=== PATIENT | male | born 2000 | race Asian ===

== ENCOUNTER 2020-07-01 16:29 | Inpatient (IN) | payer OTHER ==
[~2020-07-01] VITALS: Ht 167.6 cm; Wt 43.0 kg
[2020-07-01] MEDS ORDERED: ACETAMINOPHEN 500 MG TABLET ONE (17:12)
[2020-07-01 17:52] LABS: MEAN CORPUSCULAR HEMOGLOBIN 27.9 pg (27.5-34.5); MEAN CORPUSCULAR HGB CONC 33.1 g/dL (33.2-36.2); MEAN PLATELET VOLUME 7.1 fL (7.4-10.4); PLATELET COUNT 315 x10^3/uL (130-400); RED BLOOD COUNT 4.38 x10^6/uL (4.38-5.82); RED CELL DISTRIBUTION WIDTH 12.3 % (9.4-14.8)
[2020-07-01 17:56] LABS: MD YES
[2020-07-01] MEDS ORDERED: SODIUM CHLORIDE 0.9% 1,000ML IVBOLUS ONE (18:00)
[2020-07-01] MEDS ORDERED: ACETAMINOPHEN 500 MG TABLET PO ONE (18:00)
[2020-07-01] MEDS ORDERED: SODIUM CHLORIDE FLUSH 10ML SYR IVF ONE (18:30)
[2020-07-01] MEDS ORDERED: CEFTRIAXONE PMX 1GM/50ML 50 ML IV ONE (19:00)
[2020-07-01 19:16] LABS: BANDS%(MANUAL) 20 % (0-7); LYMPH#(MANUAL) 0.13 x10^3/uL (1-6.1); LYMPHS% (MANUAL) 2 % (22-44); METAMYELOCYTES# (MANUAL) 0.39 x10^3/uL (0-0); METAMYELOCYTES% (MANUAL) 6 % (0-1); MONOS#(MANUAL) 0.59 x10^3/uL (0.3-2.7); MONOS% (MANUAL) 9 % (2-9); REACTIVE LYMPHS % (MANUAL) 3 % (0-0); SEGS% (MANUAL) 60 % (42-75)
--- NOTE | 2020-07-01 19:20 | NUR ---
PT RESTING IN BED WITH PT FAMILY AT HIS SIDE. PT IS IN BATHROOM NOW TRYING TO PROVIDE URINE SAMPLE.
[2020-07-01 19:22] LABS: <PLATELET ESTIMATE> ADEQUATE; <PLT MORPHOLOGY> NORMAL PLT MORPH; ANISOCYTOSIS 1+
[2020-07-01 19:24] LABS: POLYCHROMASIA 1+
[2020-07-01] MEDS ORDERED: CEFTRIAXONE PMX 1GM/50ML 50 ML ONE (19:34)
[2020-07-01 19:56] LABS: MICROSCOPIC NOT IND
[2020-07-01] MEDS: CEFTRIAXONE PMX 1GM/50ML 50 ML IV SCH (20:00)
[2020-07-01] MEDS ORDERED: BISACODYL 10 MG SUPP PR PRN (20:00)
[2020-07-01] MEDS: AZITHROMYCIN 500 MG in SODIUM CHLORIDE 0.9% 250 ML IV SCH (20:00)
[2020-07-01] MEDS ORDERED: POLYETHYLENE GLYCOL 17 GM PACKET PO PRN (20:00)
[2020-07-01 20:28] LABS: ALANINE AMINOTRANSFERASE 11 U/L (12-78); ANION GAP 6 mmol/L (5-15); CALCIUM 7.6 mg/dL (8.5-10.1); CHLORIDE 110 mmol/L (98-107); CREATININE 0.75 mg/dL (0.7-1.3)
[2020-07-01 20:31] LABS: ALKALINE PHOSPHATASE 57 U/L (45-117); BILIRUBIN,TOTAL 0.3 mg/dL (0.2-1.0); TOTAL PROTEIN 4.7 g/dL (6.4-8.2)
[2020-07-01] MEDS: SODIUM CHLORIDE 0.9% 1,000 ML IV SCH (20:47)
--- NOTE | 2020-07-01 20:54 | NUR ---
PT RESTING IN BED, PT ON MONITOR WITH PT FAMILY AT PT SIDE. PT VSS. PT DENIED ANY WANTS OR NEEDS AT THIS TIME.
[2020-07-01] MEDS ORDERED: POTASSIUM CHLORIDE 20 MEQ TAB.ER.PRT PO ONE (23:00)
[2020-07-01] MEDS ORDERED: POTASSIUM CHLORIDE 20 MEQ TAB.ER.PRT ONE (23:22)
--- NOTE | 2020-07-02 00:36 | NUR ---
PT PLACED IN FLOOR BED
--- NOTE | 2020-07-02 00:56 | NUR ---
Report from GABRIELA Hernandez.
--- NOTE | 2020-07-02 01:08 | NUR ---
First contact with pt, pt back from br ambulatory. Connected back to b/p, pulse ox. Call bower in reach, ivf reconnected. Pt now NPO. AIDET provided, will continue to monitor.
--- NOTE | 2020-07-02 03:08 | NUR ---
Disconnected to ambulate to br, steady gait. a/ox4. AIDET provided.
--- NOTE | 2020-07-02 03:14 | NUR ---
Back to bed after ambulation, monitor, call bower, aidet.
--- NOTE | 2020-07-02 04:03 | NUR ---
report received from mounika painter
--- NOTE | 2020-07-02 04:18 | NUR ---
pt sleeping in hospital bed, resp even and unlabored
[2020-07-02 05:28] LABS: MEAN CORPUSCULAR HEMOGLOBIN 28.7 pg (27.5-34.5); MEAN CORPUSCULAR HGB CONC 34.2 g/dL (33.2-36.2); MEAN PLATELET VOLUME 7.3 fL (7.4-10.4); PLATELET COUNT 330 x10^3/uL (130-400); RED BLOOD COUNT 3.99 x10^6/uL (4.38-5.82); RED CELL DISTRIBUTION WIDTH 12.4 % (9.4-14.8)
[2020-07-02 05:34] LABS: ANION GAP 6 mmol/L (5-15); CALCIUM 8.2 mg/dL (8.5-10.1); CHLORIDE 109 mmol/L (98-107)
[2020-07-02 05:35] LABS: CREATININE 0.65 mg/dL (0.7-1.3)
--- NOTE | 2020-07-02 05:35 | NUR ---
pt sleeping, resp even and unlabored
[2020-07-02] MEDS: SODIUM CHLORIDE 0.9% 1,000 ML IV SCH (06:00)
[2020-07-02 06:08] LABS: MD YES
[2020-07-02 06:10] LABS: BAND#(MANUAL) 1.08 x10^3/uL; BANDS%(MANUAL) 18 % (0-7); LYMPHS% (MANUAL) 5 % (22-44); METAMYELOCYTES# (MANUAL) 0.12 x10^3/uL (0-0); METAMYELOCYTES% (MANUAL) 2 % (0-1); MONOS#(MANUAL) 0.54 x10^3/uL (0.3-2.7); MONOS% (MANUAL) 9 % (2-9); REACTIVE LYMPHS # (MANUAL) 0.18 x10^3/uL (0-0); REACTIVE LYMPHS % (MANUAL) 3 % (0-0); SEG#(MANUAL) 3.78 x10^3/uL (1.8-8); SEGS% (MANUAL) 63 % (42-75)
[2020-07-02 06:11] LABS: <PLATELET ESTIMATE> ADEQUATE; <PLT MORPHOLOGY> NORMAL PLT MORPH; ANISOCYTOSIS 1+; POLYCHROMASIA 1+
--- NOTE | 2020-07-02 07:07 | NUR ---
report given to jessica painter
--- NOTE | 2020-07-02 07:15 | NUR ---
ASSUMED CARE. RESTING WITH EYES CLOSED
[2020-07-02 08:00] LABS: C-REACTIVE PROTEIN, QUANT 6.7 mg/dL (0.02-0.49)
[2020-07-02 08:01] LABS: D-DIMER 8.22 ug/mlFEU (0.00-0.52); INTERNATIONAL NORMALIZED RATIO 1.11 (0.93-1.1); PROTHROMBIN TIME 11.8 Seconds (9.6-11.5)
--- NOTE | 2020-07-02 08:10 | NUR ---
PT DENIES PAIN AT THIS TIME. RIGHT SIDE OF FACE SWOLLEN. STATES HIS MOUTH IS DRY. AWAITING TO HEAR FROM IR IF BIOPSY TO BE DONE TODAY, NPO.
[2020-07-02] MEDS ORDERED: SENNA/DOCUSATE TABLET ONE (09:24)
[2020-07-02] MEDS: SENNA/DOCUSATE TABLET PO SCH (09:27)
--- NOTE | 2020-07-02 10:15 | NUR ---
PT TO IR
[2020-07-02] MEDS: LACTATED RINGERS 1,000 ML IV SCH ×3 (10:39→20:30)
[2020-07-02] MEDS ORDERED: OMNIPAQUE 350 MG/ML, 75ML BOTTLE ONE (11:24)
--- NOTE | 2020-07-02 11:25 | NUR ---
PT BACK FROM IR
[2020-07-02] MEDS ORDERED: CEFTRIAXONE PMX 1GM/50ML 0 ML ONE (12:28)
[2020-07-02] MEDS: AMPICILLIN/SULBACTAM 3 GM in SODIUM CHLORIDE 0.9% 100 ML IV SCH ×2 (12:30→18:30)
[2020-07-02] MEDS ORDERED: ACETAMINOPHEN 325 MG TABLET ONE (18:23)
--- NOTE | 2020-07-02 19:26 | NUR ---
SPOKE WITH FAMILY AND PT AT LENGTH ABOUT HOSPITAL COURSE. HOSPITALIST CASSIA TO SPEAK WITH FAMILY WELL.
[2020-07-02] MEDS ORDERED: CEFTRIAXONE PMX 1GM/50ML 50 ML ONE (19:28)
--- NOTE | 2020-07-02 19:30 | NUR ---
SPOKE WITH FLOOR TO PRINT DC PAPER WORK.
[2020-07-02] MEDS: AZITHROMYCIN 500 MG in SODIUM CHLORIDE 0.9% 250 ML IV SCH (20:00)
[2020-07-02] MEDS: CEFTRIAXONE PMX 1GM/50ML 50 ML IV SCH (20:14)
--- NOTE | 2020-07-02 21:10 | NUR ---
report from GABRIELA gil
--- NOTE | 2020-07-03 | NUR ---
pt resting on hospital bed, eyes closed. respirations even and unlabored.
[2020-07-03] MEDS: AMPICILLIN/SULBACTAM 3 GM in SODIUM CHLORIDE 0.9% 100 ML IV SCH ×4 (00:53→18:13)
--- NOTE | 2020-07-03 01:00 | NUR ---
pt resting on hospital bed, eyes closed. respirations even and unlabored.
[2020-07-03] MEDS: LACTATED RINGERS 1,000 ML IV SCH (01:30)
--- NOTE | 2020-07-03 03:03 | NUR ---
pt resting on hospital bed, eyes closed. respirations even and unlabored.
[2020-07-03 06:07] LABS: MEAN CORPUSCULAR HEMOGLOBIN 28.1 pg (27.5-34.5); MEAN CORPUSCULAR HGB CONC 33.6 g/dL (33.2-36.2); MEAN PLATELET VOLUME 6.9 fL (7.4-10.4); PLATELET COUNT 334 x10^3/uL (130-400); RED BLOOD COUNT 4.05 x10^6/uL (4.38-5.82); RED CELL DISTRIBUTION WIDTH 12.9 % (9.4-14.8)
[2020-07-03 06:12] LABS: ANION GAP 6 mmol/L (5-15); CALCIUM 8.3 mg/dL (8.5-10.1); CHLORIDE 105 mmol/L (98-107); CREATININE 0.76 mg/dL (0.7-1.3)
[2020-07-03] MEDS ORDERED: POTASSIUM CHLORIDE 20 MEQ TAB.ER.PRT PO ONE (06:30)
[2020-07-03] MEDS ORDERED: POTASSIUM CHLORIDE 20 MEQ TAB.ER.PRT ONE (06:36)
--- NOTE | 2020-07-03 07:00 | NUR ---
SBAR RPT REC'D AND ASSUMED PT CARE. PT SLEEPING ON HOSPITAL BED, RESP EVEN NON-LABORED.
[2020-07-03 07:06] LABS: MD YES
[2020-07-03 07:09] LABS: BAND#(MANUAL) 1.19 x10^3/uL; BANDS%(MANUAL) 18 % (0-7); LYMPH#(MANUAL) 0.53 x10^3/uL (1-6.1); LYMPHS% (MANUAL) 8 % (22-44); METAMYELOCYTES# (MANUAL) 0.13 x10^3/uL (0-0); METAMYELOCYTES% (MANUAL) 2 % (0-1); MONOS#(MANUAL) 0.59 x10^3/uL (0.3-2.7); MONOS% (MANUAL) 9 % (2-9); REACTIVE LYMPHS # (MANUAL) 0.13 x10^3/uL (0-0); REACTIVE LYMPHS % (MANUAL) 2 % (0-0); SEG#(MANUAL) 4.03 x10^3/uL (1.8-8); SEGS% (MANUAL) 61 % (42-75)
[2020-07-03 07:14] LABS: <PLATELET ESTIMATE> ADEQUATE; <PLT MORPHOLOGY> NORMAL PLT MORPH; ANISOCYTOSIS 1+; POLYCHROMASIA 1+
--- NOTE | 2020-07-03 07:44 | NUR ---
PT ASSESSMENT NOTED. PT VSS, CALL LIGHT W/I REACH
--- NOTE | 2020-07-03 08:08 | NUR ---
PT AMBULATORY WITH STEADY GAIT TO SHOWER ROOM.
--- NOTE | 2020-07-03 08:30 | NUR ---
PT COMPLETED SHOWER AND ADL'S INDEPENDENTLY W/O DIFFICULTY. RTD TO ROOM, BREAKFAST RAY PROVIDED. CALL LIGHT W/I REACH
[2020-07-03] MEDS: SENNA/DOCUSATE TABLET PO SCH (09:00)
[2020-07-03] MEDS: FLUTICASONE NASAL SPRAY 16GM NAS SCH (10:00)
[2020-07-03] MEDS ORDERED: OXYcodone IR 5MG TABLET PO PRN (10:00)
[2020-07-03] MEDS ORDERED: SODIUM CHLORIDE NASAL SPRAY 45ML BOTTLE NAS PRN (10:00)
[2020-07-03] MEDS ORDERED: RACEPINEPHRINE INH 2.25%, 0.5ML NPPB PRN (10:00)
--- NOTE | 2020-07-03 10:06 | NUR ---
PT RESTING WITH FAMILY NO NEW COMPLAINTS VITALS IN....
[2020-07-03] MEDS ORDERED: ERGO500017 PO (11:19)
[2020-07-03 12:21] VITALS: BP 103/67
[2020-07-03 18:26] VITALS: BP 115/69
[2020-07-03] MEDS: AZITHROMYCIN 500 MG in SODIUM CHLORIDE 0.9% 250 ML IV SCH (19:45)
[2020-07-03] MEDS: ACETAMINOPHEN 325 MG TABLET PO PRN (20:58)
[2020-07-03] MEDS: CEFTRIAXONE PMX 1GM/50ML 50 ML IV SCH (22:12)
[2020-07-04] MEDS: AMPICILLIN/SULBACTAM 3 GM in SODIUM CHLORIDE 0.9% 100 ML IV SCH ×4 (00:07→17:51)
[2020-07-04 03:15] VITALS: BP 96/64
[2020-07-04 07:11] VITALS: BP 100/65
[2020-07-04] MEDS: SENNA/DOCUSATE TABLET PO SCH (09:00)
[2020-07-04] MEDS: FLUTICASONE NASAL SPRAY 16GM NAS SCH (10:11)
[2020-07-04 13:00] VITALS: BP 111/69
[2020-07-04 18:40] VITALS: BP 105/68
[2020-07-05] MEDS: AMPICILLIN/SULBACTAM 3 GM in SODIUM CHLORIDE 0.9% 100 ML IV SCH ×4 (00:23→18:21)
[2020-07-05 01:07] VITALS: BP 98/64
[2020-07-05 08:09] VITALS: BP 110/70
[2020-07-05] MEDS: SENNA/DOCUSATE TABLET PO SCH (09:00)
[2020-07-05] MEDS: FLUTICASONE NASAL SPRAY 16GM NAS SCH (09:09)
[2020-07-05] MEDS: ENOXAPARIN 40 MG/0.4 ML SQ SCH (09:11)
[2020-07-05 12:15] VITALS: BP 100/62
[2020-07-05 13:17] LABS: OCCULT BLOOD POSITIVE (NEGATIVE)
[2020-07-05 14:53] LABS: CLOSTRIDIUM DIFFICILE ANTIGEN NEGATIVE; CLOSTRIDIUM DIFFICILE TOXIN NEGATIVE (Negative)
[2020-07-05] MEDS: LACTOBACILLUS CHEW TABLET PO SCH ×2 (15:38→21:35)
[2020-07-05 15:46] LABS: MEAN CORPUSCULAR HGB CONC 33.1 g/dL (33.2-36.2); MEAN PLATELET VOLUME 7.4 fL (7.4-10.4); PLATELET COUNT 365 x10^3/uL (130-400); RED BLOOD COUNT 4.25 x10^6/uL (4.38-5.82)
[2020-07-05 16:20] LABS: MD YES
[2020-07-05 16:24] LABS: BAND#(MANUAL) 1.14 x10^3/uL; BANDS%(MANUAL) 17 % (0-7); BASOS#(MANUAL) 0.07 x10^3/uL (0-0.3); BASOS% (MANUAL) 1 % (0-1); EOS#(MANUAL) 0.07 x10^3/uL (0.0-0.8); EOS% (MANUAL) 1 % (1-7); LYMPHS% (MANUAL) 6 % (22-44); METAMYELOCYTES# (MANUAL) 0.07 x10^3/uL (0-0); METAMYELOCYTES% (MANUAL) 1 % (0-1); MONOS#(MANUAL) 0.34 x10^3/uL (0.3-2.7); MONOS% (MANUAL) 5 % (2-9); SEG#(MANUAL) 4.62 x10^3/uL (1.8-8); SEGS% (MANUAL) 69 % (42-75)
[2020-07-05 16:25] LABS: <PLATELET ESTIMATE> ADEQUATE; ANISOCYTOSIS 1+
[2020-07-05 16:26] LABS: <PLT MORPHOLOGY> NORMAL PLT MORPH
[2020-07-05] MEDS ORDERED: LOPERAMIDE 2 MG CAPSULE PO PRN (17:00)
[2020-07-05 18:52] VITALS: BP 97/52
[2020-07-06] MEDS: AMPICILLIN/SULBACTAM 3 GM in SODIUM CHLORIDE 0.9% 100 ML IV SCH ×5 (00:21→23:58)
[2020-07-06 00:33] VITALS: BP 99/61
[2020-07-06 05:23] LABS: MEAN CORPUSCULAR HEMOGLOBIN 28.5 pg (27.5-34.5); MEAN PLATELET VOLUME 7.3 fL (7.4-10.4); PLATELET COUNT 341 x10^3/uL (130-400); RED BLOOD COUNT 4.04 x10^6/uL (4.38-5.82)
[2020-07-06 05:37] LABS: ALBUMIN 1.9 g/dL (3.4-5.0); ANION GAP 3 mmol/L (5-15); CALCIUM 8.7 mg/dL (8.5-10.1); CHLORIDE 105 mmol/L (98-107)
[2020-07-06 05:42] LABS: ALANINE AMINOTRANSFERASE 17 U/L (12-78); ALKALINE PHOSPHATASE 58 U/L (45-117); BILIRUBIN,TOTAL 0.5 mg/dL (0.2-1.0); CREATININE 0.72 mg/dL (0.7-1.3); TOTAL PROTEIN 4.6 g/dL (6.4-8.2)
[2020-07-06 06:12] LABS: MD YES
[2020-07-06 06:14] LABS: BAND#(MANUAL) 0.43 x10^3/uL; BANDS%(MANUAL) 7 % (0-7); EOS#(MANUAL) 0.06 x10^3/uL (0.0-0.8); EOS% (MANUAL) 1 % (1-7); LYMPH#(MANUAL) 0.12 x10^3/uL (1-6.1); LYMPHS% (MANUAL) 2 % (22-44); MONOS#(MANUAL) 0.43 x10^3/uL (0.3-2.7); MONOS% (MANUAL) 7 % (2-9); MYELOCYTES# (MANUAL) 0.12 x10^3/uL (0-0); MYELOCYTES% (MANUAL) 2 % (0-0); SEG#(MANUAL) 5.02 x10^3/uL (1.8-8); SEGS% (MANUAL) 81 % (42-75)
[2020-07-06 06:15] LABS: <PLATELET ESTIMATE> ADEQUATE; <PLT MORPHOLOGY> NORMAL PLT MORPH; POLYCHROMASIA 1+
[2020-07-06 06:36] VITALS: BP 100/65
[2020-07-06] MEDS: FLUTICASONE NASAL SPRAY 16GM NAS SCH (09:41)
[2020-07-06] MEDS: LACTOBACILLUS CHEW TABLET PO SCH ×3 (09:41→19:45)
[2020-07-06] MEDS: SENNA/DOCUSATE TABLET PO SCH (09:42)
[2020-07-06] MEDS: ENOXAPARIN 40 MG/0.4 ML SQ SCH (09:46)
[2020-07-06] MEDS ORDERED: OMNIPAQUE 350 MG/ML, 75ML BOTTLE ONE (10:22)
[2020-07-06 13:04] VITALS: BP 97/66
[2020-07-06 19:21] VITALS: BP 99/61
[2020-07-07 00:02] VITALS: BP 104/68
[2020-07-07] MEDS: AMPICILLIN/SULBACTAM 3 GM in SODIUM CHLORIDE 0.9% 100 ML IV SCH ×3 (06:06→17:59)
[2020-07-07 06:17] VITALS: BP 105/63
[2020-07-07] MEDS: ENOXAPARIN 40 MG/0.4 ML SQ SCH (08:10)
[2020-07-07] MEDS ORDERED: GADOTERATE 5 MMOL/10 ML VIAL ONE (08:55)
[2020-07-07] MEDS: LACTOBACILLUS CHEW TABLET PO SCH ×3 (09:00→20:39)
[2020-07-07] MEDS: SENNA/DOCUSATE TABLET PO SCH (09:00)
[2020-07-07] MEDS: FLUTICASONE NASAL SPRAY 16GM NAS SCH (09:00)
[2020-07-07] MEDS ORDERED: NALOXONE 1 MG/ML, 2ML ONE (11:03)
[2020-07-07] MEDS ORDERED: FLUMAZENIL 0.1 MG/1 ML, 5ML ONE (11:03)
[2020-07-07] MEDS ORDERED: FENTANYL PF 100 MCG/2ML ONE ×2 (11:03)
[2020-07-07] MEDS ORDERED: MIDAZOLAM 1 MG/ML, 5ML ONE ×2 (11:03)
[2020-07-07 12:17] VITALS: BP 101/66
[2020-07-07] MEDS ORDERED: LACTATED RINGERS 1,000 ML IVBOLUS ONE (14:30)
[2020-07-07] MEDS: ACETAMINOPHEN 325 MG TABLET PO PRN (17:59)
[2020-07-07] MEDS: ALLOPURINOL 300 MG TABLET PO SCH (18:28)
[2020-07-07 18:53] VITALS: BP 110/73
[2020-07-08] MEDS: AMPICILLIN/SULBACTAM 3 GM in SODIUM CHLORIDE 0.9% 100 ML IV SCH ×4 (00:46→19:19)
[2020-07-08 03:27] VITALS: BP 112/65
[2020-07-08] MEDS: ACETAMINOPHEN 325 MG TABLET PO PRN (03:34)
[2020-07-08 04:08] LABS: MEAN CORPUSCULAR HEMOGLOBIN 28.7 pg (27.5-34.5); MEAN CORPUSCULAR HGB CONC 34.3 g/dL (33.2-36.2); MEAN PLATELET VOLUME 7.2 fL (7.4-10.4); PLATELET COUNT 304 x10^3/uL (130-400); RED BLOOD COUNT 3.46 x10^6/uL (4.38-5.82); RED CELL DISTRIBUTION WIDTH 13.2 % (9.4-14.8)
[2020-07-08 04:16] LABS: ALANINE AMINOTRANSFERASE 14 U/L (12-78); ALBUMIN 1.6 g/dL (3.4-5.0); ANION GAP 5 mmol/L (5-15); CALCIUM 7.7 mg/dL (8.5-10.1); CHLORIDE 105 mmol/L (98-107); CREATININE 0.62 mg/dL (0.7-1.3)
[2020-07-08 04:18] LABS: ALKALINE PHOSPHATASE 52 U/L (45-117); BILIRUBIN,TOTAL 0.2 mg/dL (0.2-1.0); TOTAL PROTEIN 4.1 g/dL (6.4-8.2)
[2020-07-08 04:44] LABS: MD YES
[2020-07-08 04:48] LABS: <PLATELET ESTIMATE> ADEQUATE; <PLT MORPHOLOGY> NORMAL PLT MORPH; ANISOCYTOSIS 1+; BAND#(MANUAL) 0.85 x10^3/uL; BANDS%(MANUAL) 14 % (0-7); LYMPH#(MANUAL) 0.55 x10^3/uL (1-6.1); LYMPHS% (MANUAL) 9 % (22-44); MONOS#(MANUAL) 0.24 x10^3/uL (0.3-2.7); MONOS% (MANUAL) 4 % (2-9); SEG#(MANUAL) 4.45 x10^3/uL (1.8-8); SEGS% (MANUAL) 73 % (42-75)
[2020-07-08] MEDS ORDERED: POTASSIUM CHLORIDE 20 MEQ TAB.ER.PRT PO ONE (06:30)
[2020-07-08 07:59] VITALS: BP 102/60
[2020-07-08] MEDS ORDERED: PROCHLORPERAZINE 10MG TABLET PO PRN (08:30)
[2020-07-08] MEDS ORDERED: PROCHLORPERAZINE 5 MG/ML, 2ML IV PRN (08:30)
[2020-07-08] MEDS: ENTECAVIR 0.5 MG TABLET PO SCH (09:14)
[2020-07-08] MEDS: LACTOBACILLUS CHEW TABLET PO SCH ×3 (09:15→23:10)
[2020-07-08] MEDS: ALLOPURINOL 300 MG TABLET PO SCH (09:15)
[2020-07-08] MEDS: ENOXAPARIN 40 MG/0.4 ML SQ SCH (09:16)
[2020-07-08] MEDS: FLUTICASONE NASAL SPRAY 16GM NAS SCH (09:29)
[2020-07-08] MEDS: SODIUM CHLORIDE 0.9% 1,000 ML IV SCH ×2 (09:29→19:25)
[2020-07-08] MEDS: SENNA/DOCUSATE TABLET PO SCH (09:30)
[2020-07-08] MEDS ORDERED: FOSAPREPITANT 150 MG in SODIUM CHLORIDE 0.9% 145 ML IV ONE (10:30)
[2020-07-08] MEDS ORDERED: ONDANSETRON 16 MG in SODIUM CHLORIDE 0.9% 50 ML IVPB ONE (10:30)
[2020-07-08] MEDS: ETOPOSIDE IV SCH (11:50)
[2020-07-08] MEDS: SODIUM CHLORIDE 0.9% IV SCH (11:50)
[2020-07-08] MEDS: DOXORUBICIN IV SCH (11:50)
[2020-07-08] MEDS: VINCRISTINE IV SCH (11:50)
[2020-07-08 13:23] VITALS: BP 119/67
[2020-07-08 18:58] VITALS: BP 107/66
[2020-07-08 19:04] LABS: ANION GAP 7 mmol/L (5-15); CALCIUM 7.5 mg/dL (8.5-10.1); CHLORIDE 109 mmol/L (98-107); CREATININE 0.75 mg/dL (0.7-1.3)
[2020-07-09] MEDS: AMPICILLIN/SULBACTAM 3 GM in SODIUM CHLORIDE 0.9% 100 ML IV SCH ×2 (01:12→08:52)
[2020-07-09 01:15] VITALS: BP 108/71
[2020-07-09 05:04] LABS: MEAN CORPUSCULAR HGB CONC 33.6 g/dL (33.2-36.2); MEAN PLATELET VOLUME 7.3 fL (7.4-10.4); PLATELET COUNT 329 x10^3/uL (130-400); RED BLOOD COUNT 3.61 x10^6/uL (4.38-5.82); RED CELL DISTRIBUTION WIDTH 13.2 % (9.4-14.8)
[2020-07-09 05:16] LABS: ALANINE AMINOTRANSFERASE 15 U/L (12-78); ALBUMIN 1.8 g/dL (3.4-5.0); ANION GAP 6 mmol/L (5-15); CALCIUM 8.7 mg/dL (8.5-10.1); CHLORIDE 108 mmol/L (98-107); CREATININE 0.55 mg/dL (0.7-1.3)
[2020-07-09 05:18] LABS: ALKALINE PHOSPHATASE 58 U/L (45-117); BILIRUBIN,TOTAL 0.2 mg/dL (0.2-1.0); TOTAL PROTEIN 4.6 g/dL (6.4-8.2)
[2020-07-09 05:38] LABS: MD YES
[2020-07-09 05:46] LABS: BAND#(MANUAL) 0.82 x10^3/uL; BANDS%(MANUAL) 13 % (0-7); LYMPH#(MANUAL) 0.19 x10^3/uL (1-6.1); LYMPHS% (MANUAL) 3 % (22-44); METAMYELOCYTES# (MANUAL) 0.06 x10^3/uL (0-0); METAMYELOCYTES% (MANUAL) 1 % (0-1); MONOS#(MANUAL) 0.19 x10^3/uL (0.3-2.7); MONOS% (MANUAL) 3 % (2-9); MYELOCYTES# (MANUAL) 0.06 x10^3/uL (0-0); MYELOCYTES% (MANUAL) 1 % (0-0); SEG#(MANUAL) 4.98 x10^3/uL (1.8-8); SEGS% (MANUAL) 79 % (42-75)
[2020-07-09] MEDS: SODIUM CHLORIDE 0.9% 1,000 ML IV SCH ×3 (05:47→23:38)
[2020-07-09 05:48] LABS: <PLATELET ESTIMATE> ADEQUATE; <PLT MORPHOLOGY> NORMAL PLT MORPH; ANISOCYTOSIS 1+
[2020-07-09 08:31] VITALS: BP 113/72
[2020-07-09] MEDS: FLUTICASONE NASAL SPRAY 16GM NAS SCH (08:50)
[2020-07-09] MEDS: ENOXAPARIN 40 MG/0.4 ML SQ SCH (08:51)
[2020-07-09] MEDS: SENNA/DOCUSATE TABLET PO SCH (08:52)
[2020-07-09] MEDS: ALLOPURINOL 300 MG TABLET PO SCH (08:53)
[2020-07-09] MEDS: LACTOBACILLUS CHEW TABLET PO SCH ×3 (08:53→20:30)
[2020-07-09] MEDS: ENTECAVIR 0.5 MG TABLET PO SCH (08:53)
[2020-07-09] MEDS: ONDANSETRON 8 MG in SODIUM CHLORIDE 0.9% 50 ML IVPB SCH (10:51)
[2020-07-09 12:49] VITALS: BP 120/64
[2020-07-09] MEDS: SODIUM CHLORIDE 0.9% IV SCH (13:45)
[2020-07-09] MEDS: ETOPOSIDE IV SCH (13:45)
[2020-07-09] MEDS: VINCRISTINE IV SCH (13:45)
[2020-07-09] MEDS: DOXORUBICIN IV SCH (13:45)
[2020-07-09] MEDS: CEFEPIME 1 GM in DEXTROSE 5% 50 ML IV SCH ×2 (16:18→23:35)
[2020-07-09 19:06] VITALS: BP 105/62
[2020-07-10 05:15] VITALS: BP 106/65
[2020-07-10 05:46] LABS: MEAN CORPUSCULAR HEMOGLOBIN 28.3 pg (27.5-34.5); MEAN CORPUSCULAR HGB CONC 33.8 g/dL (33.2-36.2); MEAN PLATELET VOLUME 7.2 fL (7.4-10.4); PLATELET COUNT 362 x10^3/uL (130-400); RED BLOOD COUNT 3.36 x10^6/uL (4.38-5.82); RED CELL DISTRIBUTION WIDTH 12.9 % (9.4-14.8)
[2020-07-10 05:47] LABS: CHLORIDE 110 mmol/L (98-107)
[2020-07-10 05:56] LABS: ALANINE AMINOTRANSFERASE 16 U/L (12-78); ALBUMIN 1.7 g/dL (3.4-5.0); ALKALINE PHOSPHATASE 50 U/L (45-117); ANION GAP 3 mmol/L (5-15); BILIRUBIN,TOTAL 0.3 mg/dL (0.2-1.0); CALCIUM 8.4 mg/dL (8.5-10.1); CREATININE 0.58 mg/dL (0.7-1.3); TOTAL PROTEIN 4.2 g/dL (6.4-8.2)
[2020-07-10 06:16] LABS: MD YES
[2020-07-10 06:18] LABS: ANISOCYTOSIS 1+; BAND#(MANUAL) 1.26 x10^3/uL; BANDS%(MANUAL) 20 % (0-7); LYMPH#(MANUAL) 0.25 x10^3/uL (1-6.1); LYMPHS% (MANUAL) 4 % (22-44); METAMYELOCYTES# (MANUAL) 0.06 x10^3/uL (0-0); METAMYELOCYTES% (MANUAL) 1 % (0-1); MONOS#(MANUAL) 0.25 x10^3/uL (0.3-2.7); MONOS% (MANUAL) 4 % (2-9); OVALOCYTES 1+; POLYCHROMASIA 1+; SEG#(MANUAL) 4.47 x10^3/uL (1.8-8); SEGS% (MANUAL) 71 % (42-75)
[2020-07-10 06:19] LABS: <PLATELET ESTIMATE> ADEQUATE; <PLT MORPHOLOGY> NORMAL PLT MORPH; TEAR DROPS 1+
[2020-07-10 07:15] VITALS: BP 108/67
[2020-07-10 09:04] LABS: HCT (SEDRATE) 28.2 % (39.2-51.8)
[2020-07-10] MEDS: LACTOBACILLUS CHEW TABLET PO SCH ×3 (09:37→21:15)
[2020-07-10] MEDS: ALLOPURINOL 300 MG TABLET PO SCH (09:37)
[2020-07-10] MEDS: FLUTICASONE NASAL SPRAY 16GM NAS SCH (09:38)
[2020-07-10] MEDS: SENNA/DOCUSATE TABLET PO SCH (09:39)
[2020-07-10] MEDS: ENTECAVIR 0.5 MG TABLET PO SCH (09:41)
[2020-07-10] MEDS: CEFEPIME 1 GM in DEXTROSE 5% 50 ML IV SCH ×2 (09:48→17:15)
[2020-07-10] MEDS: ENOXAPARIN 40 MG/0.4 ML SQ SCH (09:50)
[2020-07-10] MEDS: ONDANSETRON 8 MG in SODIUM CHLORIDE 0.9% 50 ML IVPB SCH (12:00)
[2020-07-10] MEDS: SODIUM CHLORIDE 0.9% 1,000 ML IV SCH ×2 (12:00→22:26)
[2020-07-10 12:45] VITALS: BP 113/66
[2020-07-10] MEDS: ETOPOSIDE IV SCH (14:06)
[2020-07-10] MEDS: SODIUM CHLORIDE 0.9% IV SCH (14:06)
[2020-07-10] MEDS: VINCRISTINE IV SCH (14:06)
[2020-07-10] MEDS: DOXORUBICIN IV SCH (14:06)
[2020-07-10] MEDS: ONDANSETRON ODT 4 MG PO PRN (18:30)
[2020-07-10 18:35] VITALS: BP 95/57
[2020-07-11] MEDS: CEFEPIME 1 GM in DEXTROSE 5% 50 ML IV SCH ×3 (00:07→16:20)
[2020-07-11 03:05] VITALS: BP 105/68
[2020-07-11 05:08] LABS: MEAN CORPUSCULAR HEMOGLOBIN 28.4 pg (27.5-34.5); MEAN CORPUSCULAR HGB CONC 34.1 g/dL (33.2-36.2); MEAN PLATELET VOLUME 6.7 fL (7.4-10.4); PLATELET COUNT 368 x10^3/uL (130-400); RED BLOOD COUNT 3.39 x10^6/uL (4.38-5.82); RED CELL DISTRIBUTION WIDTH 13.2 % (9.4-14.8)
[2020-07-11 05:19] LABS: ALBUMIN 1.8 g/dL (3.4-5.0); ANION GAP 7 mmol/L (5-15); CALCIUM 8.3 mg/dL (8.5-10.1); CHLORIDE 106 mmol/L (98-107)
[2020-07-11 05:22] LABS: ALANINE AMINOTRANSFERASE 23 U/L (12-78); ALKALINE PHOSPHATASE 49 U/L (45-117); BILIRUBIN,TOTAL 0.3 mg/dL (0.2-1.0); TOTAL PROTEIN 4.2 g/dL (6.4-8.2)
[2020-07-11 05:50] LABS: MD YES
[2020-07-11 05:53] LABS: <PLATELET ESTIMATE> ADEQUATE; <PLT MORPHOLOGY> NORMAL PLT MORPH; ANISOCYTOSIS 1+; BAND#(MANUAL) 0.48 x10^3/uL; BANDS%(MANUAL) 11 % (0-7); LYMPH#(MANUAL) 0.13 x10^3/uL (1-6.1); LYMPHS% (MANUAL) 3 % (22-44); METAMYELOCYTES# (MANUAL) 0.09 x10^3/uL (0-0); METAMYELOCYTES% (MANUAL) 2 % (0-1); MONOS#(MANUAL) 0.26 x10^3/uL (0.3-2.7); MONOS% (MANUAL) 6 % (2-9); POLYCHROMASIA 1+; SEG#(MANUAL) 3.43 x10^3/uL (1.8-8); SEGS% (MANUAL) 78 % (42-75)
[2020-07-11 05:55] LABS: OVALOCYTES 1+
[2020-07-11 07:03] VITALS: BP 111/64
[2020-07-11] MEDS: LACTOBACILLUS CHEW TABLET PO SCH ×3 (08:43→21:17)
[2020-07-11] MEDS: ONDANSETRON ODT 4 MG PO PRN (08:43)
[2020-07-11] MEDS: ALLOPURINOL 300 MG TABLET PO SCH (08:43)
[2020-07-11] MEDS: SENNA/DOCUSATE TABLET PO SCH (08:43)
[2020-07-11] MEDS: FLUTICASONE NASAL SPRAY 16GM NAS SCH (08:44)
[2020-07-11] MEDS: SODIUM CHLORIDE 0.9% 1,000 ML IV SCH ×2 (08:49→20:41)
[2020-07-11] MEDS: ENTECAVIR 0.5 MG TABLET PO SCH (08:51)
[2020-07-11] MEDS ORDERED: METHOTREXATE IT ONE ×2 (10:00→10:30)
[2020-07-11] MEDS ORDERED: SODIUM CHLORIDE 0.9% IT ONE ×2 (10:00→10:30)
[2020-07-11 14:22] VITALS: BP 104/61
[2020-07-11 14:28] LABS: GLUCOSE, CSF 51 mg/dL (40-80); TOTAL PROTEIN,CSF 23 mg/dL (15-45)
[2020-07-11] MEDS: ONDANSETRON 8 MG in SODIUM CHLORIDE 0.9% 50 ML IVPB SCH (14:31)
[2020-07-11] MEDS: DOXORUBICIN IV SCH (15:14)
[2020-07-11] MEDS: VINCRISTINE IV SCH (15:14)
[2020-07-11] MEDS: SODIUM CHLORIDE 0.9% IV SCH (15:14)
[2020-07-11] MEDS: ETOPOSIDE IV SCH (15:14)
[2020-07-11] MEDS: POTASSIUM CHLORIDE 20 MEQ TAB.ER.PRT PO SCH ×2 (16:09→17:50)
[2020-07-11] MEDS: ACETAMINOPHEN 325 MG TABLET PO PRN (17:50)
[2020-07-11 17:55] LABS: INTERNATIONAL NORMALIZED RATIO 1.04 (0.93-1.1)
[2020-07-11 18:48] VITALS: BP 111/56
[2020-07-12 01:44] VITALS: BP 100/60
[2020-07-12 05:37] LABS: MEAN CORPUSCULAR HEMOGLOBIN 27.6 pg (27.5-34.5); MEAN CORPUSCULAR HGB CONC 33.5 g/dL (33.2-36.2); MEAN PLATELET VOLUME 6.9 fL (7.4-10.4); PLATELET COUNT 339 x10^3/uL (130-400); RED BLOOD COUNT 3.45 x10^6/uL (4.38-5.82); RED CELL DISTRIBUTION WIDTH 13.3 % (9.4-14.8)
[2020-07-12 05:43] LABS: ALBUMIN 1.9 g/dL (3.4-5.0); ANION GAP 5 mmol/L (5-15); CALCIUM 7.9 mg/dL (8.5-10.1); CHLORIDE 106 mmol/L (98-107)
[2020-07-12 05:47] LABS: ALANINE AMINOTRANSFERASE 40 U/L (12-78); ALKALINE PHOSPHATASE 70 U/L (45-117); BILIRUBIN,TOTAL 0.2 mg/dL (0.2-1.0); CREATININE 0.56 mg/dL (0.7-1.3); TOTAL PROTEIN 4.4 g/dL (6.4-8.2)
[2020-07-12 06:26] LABS: BAND#(MANUAL) 0.36 x10^3/uL; BANDS%(MANUAL) 11 % (0-7); LYMPHS% (MANUAL) 3 % (22-44); MD YES; METAMYELOCYTES% (MANUAL) 3 % (0-1); MONOS#(MANUAL) 0.07 x10^3/uL (0.3-2.7); MONOS% (MANUAL) 2 % (2-9); MYELOCYTES# (MANUAL) 0.03 x10^3/uL (0-0); MYELOCYTES% (MANUAL) 1 % (0-0); SEG#(MANUAL) 2.64 x10^3/uL (1.8-8); SEGS% (MANUAL) 80 % (42-75)
[2020-07-12 06:27] LABS: ANISOCYTOSIS 1+; OVALOCYTES 1+; POLYCHROMASIA 1+; TEAR DROPS 1+
[2020-07-12 06:28] LABS: <PLATELET ESTIMATE> ADEQUATE; <PLT MORPHOLOGY> NORMAL PLT MORPH
[2020-07-12 06:39] VITALS: BP 99/61
[2020-07-12] MEDS: ACETAMINOPHEN 325 MG TABLET PO PRN ×2 (08:06→19:54)
[2020-07-12] MEDS: SENNA/DOCUSATE TABLET PO SCH (08:06)
[2020-07-12] MEDS: ALLOPURINOL 300 MG TABLET PO SCH (08:07)
[2020-07-12] MEDS: LACTOBACILLUS CHEW TABLET PO SCH ×3 (08:07→22:14)
[2020-07-12] MEDS: SODIUM CHLORIDE 0.9% 1,000 ML IV SCH ×2 (08:07→19:46)
[2020-07-12] MEDS: CEFEPIME 1 GM in DEXTROSE 5% 50 ML IV SCH ×3 (08:07→15:29)
[2020-07-12] MEDS: ENTECAVIR 0.5 MG TABLET PO SCH (08:07)
[2020-07-12] MEDS: FLUTICASONE NASAL SPRAY 16GM NAS SCH ×2 (08:08→08:09)
[2020-07-12] MEDS ORDERED: ONDANSETRON 8 MG in SODIUM CHLORIDE 0.9% 50 ML IVPB SCH (11:00)
[2020-07-12 13:38] VITALS: BP 106/63
[2020-07-12] MEDS ORDERED: ONDANSETRON 8 MG in SODIUM CHLORIDE 0.9% 50 ML IVPB ONE (16:00)
[2020-07-12] MEDS ORDERED: CYCLOPHOSPHAMIDE IV ONE (16:30)
[2020-07-12] MEDS ORDERED: SODIUM CHLORIDE 0.9% IV ONE ×2 (16:30→17:30)
[2020-07-12] MEDS ORDERED: ACETAMINOPHEN 325 MG TABLET PO ONE (17:00)
[2020-07-12] MEDS ORDERED: DIPHENHYDRAMINE 50 MG/ML, 1ML IVPush ONE (17:00)
[2020-07-12] MEDS ORDERED: RITUXIMAB IV ONE (17:30)
[2020-07-12 19:53] VITALS: BP 110/65
[2020-07-13] MEDS: CEFEPIME 1 GM in DEXTROSE 5% 50 ML IV SCH ×2 (00:34→08:44)
[2020-07-13 00:40] VITALS: BP 106/64
[2020-07-13] MEDS: ONDANSETRON ODT 4 MG PO PRN (02:02)
[2020-07-13] MEDS: SODIUM CHLORIDE 0.9% 1,000 ML IV SCH (05:23)
[2020-07-13 05:42] LABS: MEAN CORPUSCULAR HEMOGLOBIN 27.6 pg (27.5-34.5); MEAN CORPUSCULAR HGB CONC 33.4 g/dL (33.2-36.2); PLATELET COUNT 325 x10^3/uL (130-400); RED BLOOD COUNT 3.27 x10^6/uL (4.38-5.82); RED CELL DISTRIBUTION WIDTH 12.9 % (9.4-14.8)
[2020-07-13 05:47] LABS: ALBUMIN 1.9 g/dL (3.4-5.0); ANION GAP 4 mmol/L (5-15); CHLORIDE 106 mmol/L (98-107)
[2020-07-13 06:04] LABS: ALANINE AMINOTRANSFERASE 69 U/L (12-78); ALKALINE PHOSPHATASE 70 U/L (45-117); BILIRUBIN,TOTAL 0.3 mg/dL (0.2-1.0); TOTAL PROTEIN 4.5 g/dL (6.4-8.2)
[2020-07-13 06:29] LABS: MD YES
[2020-07-13 06:33] LABS: ANISOCYTOSIS 1+; BAND#(MANUAL) 0.58 x10^3/uL; BANDS%(MANUAL) 18 % (0-7); LYMPHS% (MANUAL) 3 % (22-44); MONOS#(MANUAL) 0.03 x10^3/uL (0.3-2.7); MONOS% (MANUAL) 1 % (2-9); OVALOCYTES 1+; POLYCHROMASIA 1+; SEGS% (MANUAL) 78 % (42-75); TEAR DROPS 1+
[2020-07-13 06:34] LABS: <PLATELET ESTIMATE> ADEQUATE; <PLT MORPHOLOGY> NORMAL PLT MORPH
[2020-07-13 06:52] LABS: CREATININE 0.57 mg/dL (0.7-1.3)
[2020-07-13 07:06] VITALS: BP 99/61
[2020-07-13] MEDS: SENNA/DOCUSATE TABLET PO SCH (08:44)
[2020-07-13] MEDS: FLUTICASONE NASAL SPRAY 16GM NAS SCH (08:44)
[2020-07-13] MEDS: LACTOBACILLUS CHEW TABLET PO SCH ×2 (08:44→15:56)
[2020-07-13] MEDS: ALLOPURINOL 300 MG TABLET PO SCH (08:44)
[2020-07-13] MEDS: ENTECAVIR 0.5 MG TABLET PO SCH (10:05)
[2020-07-13] MEDS: POTASSIUM CHLORIDE 20 MEQ TAB.ER.PRT PO SCH ×2 (10:57→14:13)
[2020-07-13 12:33] VITALS: BP 112/67
[2020-07-13] MEDS ORDERED: ENTE0.5T4 PO (13:00)
[2020-07-13] MEDS ORDERED: ACYC-113 PO (13:00)
[2020-07-13] MEDS ORDERED: ACYCLOVIR 200 MG CAPSULE PO SCH (21:00)
[2020-07-14] MEDS ORDERED: TBO-FILGRASTIM 300 MCG/0.5 ML SQ SCH ×2 (09:00)
== END 2020-07-13 17:55 | disposition home or self-care (01) | DRG 853 ==
LOC: ED 16:55 → EDIP 19:38 → 4NW 07-03 11:13
PROVIDERS: ADMIT Internal Medicine; ATTEND Internal Medicine
PROC: 07B23ZX Excision of Left Neck Lymphatic, Percutaneous Approach, Diagnostic (ICD-10-PCS; 2020-07-02)
PROC: 02HV33Z Insertion of Infusion Device into Superior Vena Cava, Percutaneous Approach (ICD-10-PCS; 2020-07-07)
PROC: B5181ZA Fluoroscopy of Superior Vena Cava using Low Osmolar Contrast, Guidance (ICD-10-PCS; 2020-07-07)
PROC: B548ZZA Ultrasonography of Superior Vena Cava, Guidance (ICD-10-PCS; 2020-07-07)
PROC: 07DR3ZX Extraction of Iliac Bone Marrow, Percutaneous Approach, Diagnostic (ICD-10-PCS; 2020-07-07)
PROC: 009U3ZX Drainage of Spinal Canal, Percutaneous Approach, Diagnostic (ICD-10-PCS; principal; 2020-07-11)
PROC: B01B1ZZ Fluoroscopy of Spinal Cord using Low Osmolar Contrast (ICD-10-PCS; 2020-07-11)
DX: A41.9 Sepsis, unspecified organism (principal); J18.8 Other pneumonia, unspecified organism; C83.30 Diffuse large B-cell lymphoma, unspecified site; C79.9 Secondary malignant neoplasm of unspecified site; Z94.81 Bone marrow transplant status; D64.9 Anemia, unspecified; D49.89 Neoplasm of unspecified behavior of other specified sites; Z20.828 Contact with and (suspected) exposure to other viral communicable diseases; C80.1 Malignant (primary) neoplasm, unspecified; Z82.49 Family history of ischemic heart disease and other diseases of the circulatory system; Z87.74 Personal history of (corrected) congenital malformations of heart and circulatory system
CPT/HCPCS: 10005; 36415; 36573; 38222; 62328; 70481; 70543; 70551; 71045; 71275; 77012; 80048; 80053; 80074; 81003; 82105; 82272; 82945; 83605; 83615; 83735; 84100; 84145; 84157; 84550; 84702; 85025; 85060; 85097; 85379; 85610; 85651; 85730; 86140; 87040; 87324; 87517; 87806; 88108; 88237; 88264; 88280; 88305; 88311; 88313; 88341; 88342; 88360; 89051; 93306; 99156; 99157; G0378; J0295; J0456; J0692; J0696; J1453; J1650; J2250; J2405; J3010; J9070; J9181; J9250; Q0162; Q9967; A9575; C1751; G0475; J1200; J2310; J7030; J7040; J7050; J7120; J7512; J9000; J9312; J9370; U0003

== ENCOUNTER 2020-07-28 06:58 | Day surgery (SDC) | payer OTHER ==
[~2020-07-28] VITALS: Ht 167.6 cm; Wt 46.0 kg
[~2020-07-28 06:58] MED LIST: ACYC-113 PO; CIPR500T87 PO; ENTE0.5T4 PO; ERGO500017 PO; FLUC200T PO
[2020-07-28 07:14] VITALS: BP 113/72
[2020-07-28] MEDS ORDERED: SODIUM CHLORIDE 0.9% 1,000 ML IV SCH (07:30)
[2020-07-28] MEDS ORDERED: CEFAZOLIN PMX 1GM/50ML 50 ML IV ONE (07:30)
[2020-07-28] MEDS ORDERED: LIDOCAINE 1%, 20ML ONE (08:06)
[2020-07-28] MEDS ORDERED: MIDAZOLAM 1 MG/ML, 5ML ONE ×2 (08:17)
[2020-07-28] MEDS ORDERED: FENTANYL PF 100 MCG/2ML ONE (08:17)
[2020-07-28] MEDS ORDERED: NALOXONE 1 MG/ML, 2ML ONE (08:17)
[2020-07-28] MEDS ORDERED: FLUMAZENIL 0.1 MG/1 ML, 5ML ONE (08:17)
[2020-07-28] MEDS ORDERED: LIDOCAINE 1%, 10ML ONE (08:57)
== END 2020-07-28 10:35 | disposition home or self-care (01) ==
LOC: OUT 06:58 → EDSTATUS 09:00 → OUT 10:35
PROVIDERS: ATTEND Internal Medicine Hematology & Oncology
DX: C83.30 Diffuse large B-cell lymphoma, unspecified site (principal); Z79.899 Other long term (current) drug therapy; Z94.81 Bone marrow transplant status; Z98.890 Other specified postprocedural states
CPT/HCPCS: 36561; 76937; 77001; 99156; 99157; C1788; C1894; J0690; J1642; J2250; J3010; J7030; J2310

== ENCOUNTER 2020-08-24 16:23 | Inpatient (IN) | payer OTHER ==
[~2020-08-24] VITALS: Ht 167.6 cm; Wt 48.8 kg
--- NOTE | 2020-08-24 16:44 | NUR ---
PT FEELING WEAK, FEBRILE AND BONE PAIN. CHEMO 3 WEEKS AGO. UNABLE TO KEEP MEDS OR FLUIDS DOWN.
[2020-08-24] MEDS ORDERED: ACETAMINOPHEN 500 MG TABLET PO ONE (17:00)
[2020-08-24] MEDS ORDERED: SODIUM CHLORIDE 0.9% 1,000ML IVBOLUS ONE (17:00)
[2020-08-24] MEDS ORDERED: MEROPENEM 1 GM in SODIUM CHLORIDE 0.9% 100 ML IV ONE (17:30)
--- NOTE | 2020-08-24 17:37 | NUR ---
ACCESSED PORT FOR LABS, BLOOD CULTURES. ALMA ROSA BENNETT FOR ACCESS. PT TOLERATED WELL.
--- NOTE | 2020-08-24 17:47 | NUR ---
BLOOD CULTURES DRAWN PRIOR TO ABX ADMIN. EKG IN PROCESS
[2020-08-24 17:52] LABS: MEAN CORPUSCULAR HEMOGLOBIN 27.9 pg (27.5-34.5); MEAN CORPUSCULAR HGB CONC 33.2 g/dL (33.2-36.2); MEAN PLATELET VOLUME 7.9 fL (7.4-10.4); PLATELET COUNT 216 x10^3/uL (130-400); RED BLOOD COUNT 3.63 x10^6/uL (4.38-5.82); RED CELL DISTRIBUTION WIDTH 22.5 % (9.4-14.8)
[2020-08-24 17:55] LABS: ALANINE AMINOTRANSFERASE 28 U/L (12-78); ALBUMIN 3.4 g/dL (3.4-5.0); ANION GAP 7 mmol/L (5-15); CALCIUM 8.8 mg/dL (8.5-10.1); CHLORIDE 103 mmol/L (98-107); CREATININE 0.72 mg/dL (0.7-1.3)
[2020-08-24 17:56] LABS: ALKALINE PHOSPHATASE 113 U/L (45-117); BILIRUBIN,TOTAL 0.7 mg/dL (0.2-1.0); TOTAL PROTEIN 6.7 g/dL (6.4-8.2)
[2020-08-24] MEDS ORDERED: ACETAMINOPHEN 500 MG TABLET ONE (18:00)
--- NOTE | 2020-08-24 18:46 | NUR ---
REPORT TO ANIKET
--- NOTE | 2020-08-24 18:47 | NUR ---
BEDSIDE REPORT RECEIVED FROM MARIZA OCHOA
--- NOTE | 2020-08-24 19:01 | NUR ---
ERP AT BEDSIDE. PT RESTING COMFORTABLY ON GURNEY, NADN, VSS. PT HAS NO NEEDS AT THIS TIME. CALL LIGHT AND BELONGINGS WITHIN REACH.
[2020-08-24] MEDS ORDERED: TRAM50TA2 PO (19:13)
--- NOTE | 2020-08-24 19:26 | NUR ---
Pt to be admitted to ONC, room 437. Report called to CAREN.
[2020-08-24 19:35] LABS: MD YES
[2020-08-24 19:38] LABS: ANISOCYTOSIS 2+; BAND#(MANUAL) 1.05 x10^3/uL; BANDS%(MANUAL) 6 % (0-7); LYMPH#(MANUAL) 0.18 x10^3/uL (1-6.1); LYMPHS% (MANUAL) 1 % (22-44); MONOS#(MANUAL) 1.05 x10^3/uL (0.3-2.7); MONOS% (MANUAL) 6 % (2-9); SEG#(MANUAL) 15.23 x10^3/uL (1.8-8); SEGS% (MANUAL) 87 % (42-75)
[2020-08-24 19:39] LABS: OVALOCYTES 1+; POLYCHROMASIA 1+; TEAR DROPS 1+
[2020-08-24 19:40] LABS: <PLATELET ESTIMATE> ADEQUATE; <PLT MORPHOLOGY> NORMAL PLT MORPH
--- NOTE | 2020-08-24 19:40 | NUR ---
HOSPITALIST AT BEDSIDE
[2020-08-24 20:35] VITALS: BP 114/70
[2020-08-24] MEDS ORDERED: PHARMACOKINETIC MONITORING MC PRN (21:30)
[2020-08-24] MEDS ORDERED: PROMETHAZINE 25 MG/ML, 1ML IM PRN (21:30)
[2020-08-24] MEDS ORDERED: ONDANSETRON 2MG/ML, 2ML IVPush PRN (21:30)
[2020-08-24] MEDS ORDERED: BISACODYL 10 MG SUPP PR PRN (21:30)
[2020-08-24] MEDS ORDERED: VANCOMYCIN PMX 1GM/200ML 200 ML IV ONE (21:30)
[2020-08-24] MEDS ORDERED: ONDANSETRON ODT 4 MG PO PRN (21:30)
[2020-08-24] MEDS ORDERED: hydrALAzine 20 MG/ML, 1ML IVPush PRN (21:30)
[2020-08-24] MEDS ORDERED: morphine SULFATE 10 MG/ML, 1ML IVPush PRN (21:30)
[2020-08-24] MEDS ORDERED: ENOXAPARIN 40 MG/0.4 ML SQ SCH (21:30)
[2020-08-24] MEDS ORDERED: VANCOMYCIN PER PHARMACY MC PRN (21:30)
[2020-08-24] MEDS ORDERED: ACETAMINOPHEN 325 MG TABLET PO PRN (21:30)
[2020-08-24] MEDS ORDERED: OXYcodone IR 5MG TABLET PO PRN (21:30)
[2020-08-24] MEDS ORDERED: POLYETHYLENE GLYCOL 17 GM PACKET PO PRN (21:30)
[2020-08-24] MEDS ORDERED: DOCUSATE 100 MG CAPSULE PO PRN (21:30)
[2020-08-24 21:59] LABS: FREE T4 (FREE THYROXINE) 0.93 ng/dL (0.76-1.46)
[2020-08-24] MEDS ORDERED: ALLO300T PO (22:03)
[2020-08-24] MEDS ORDERED: ONDA8TAB16 SL (22:03)
[2020-08-24] MEDS ORDERED: PROC10TA78 PO (22:03)
[2020-08-24] MEDS ORDERED: FAMO-79 PO (22:03)
[2020-08-24] MEDS: ACYCLOVIR 400 MG TABLET PO SCH (22:32)
[2020-08-24] MEDS: VANCOMYCIN PMX 1GM/200ML 200 ML IV SCH (22:34)
[2020-08-24] MEDS: SODIUM CHLORIDE 0.9% 1,000 ML IV SCH (22:35)
[2020-08-25 04:00] VITALS: BP 94/59
[2020-08-25 04:27] LABS: MICROSCOPIC AUTO
[2020-08-25 05:42] LABS: BASOPHILS % (AUTO) 1 % (0-1); EOSINOPHILS % (AUTO) 0 % (1-7); LYMPHOCYTES % (AUTO) 2 % (22-44); MEAN CORPUSCULAR HEMOGLOBIN 28.8 pg (27.5-34.5); MEAN CORPUSCULAR HGB CONC 33.7 g/dL (33.2-36.2); MEAN PLATELET VOLUME 7.7 fL (7.4-10.4); MONOCYTES % (AUTO) 6 % (2-9); NEUTROPHILS % (AUTO) 92 % (42-75); PLATELET COUNT 193 x10^3/uL (130-400); RED BLOOD COUNT 3.21 x10^6/uL (4.38-5.82); RED CELL DISTRIBUTION WIDTH 22.6 % (9.4-14.8)
[2020-08-25 05:54] LABS: ALANINE AMINOTRANSFERASE 24 U/L (12-78); ALBUMIN 2.8 g/dL (3.4-5.0); ANION GAP 7 mmol/L (5-15); CALCIUM 8.4 mg/dL (8.5-10.1); CHLORIDE 109 mmol/L (98-107); CHOLESTEROL, TOTAL 111 mg/dL (140-239); CREATININE 0.54 mg/dL (0.7-1.3)
[2020-08-25 05:56] LABS: ALKALINE PHOSPHATASE 82 U/L (45-117); BILIRUBIN,TOTAL 0.5 mg/dL (0.2-1.0); CHOL/HDL RATIO 2.8; HDL CHOL % 35 % (26-37); HDL CHOLESTEROL (DIRECT) 39 mg/dL (40-60); LDL CHOLESTEROL,CALCULATED 55 mg/dL (54-169); LDL/HDL RATIO 1.4 (0.5-3.0); TOTAL PROTEIN 5.7 g/dL (6.4-8.2); TRIGLYCERIDES 86 mg/dL (50-200); VLDL CHOLESTEROL 17 mg/dL (0-25)
[2020-08-25] MEDS ORDERED: CEFEPIME 1 GM in DEXTROSE 5% 50 ML IV SCH (06:00)
[2020-08-25 06:07] LABS: MD SCAN
[2020-08-25] MEDS: VANCOMYCIN PMX 1GM/200ML 200 ML IV SCH (06:21)
[2020-08-25 07:42] VITALS: BP 101/64
[2020-08-25] MEDS: ACYCLOVIR 400 MG TABLET PO SCH (08:01)
[2020-08-25] MEDS ORDERED: FLUCONAZOLE 100 MG TABLET PO SCH (09:00)
[2020-08-25] MEDS ORDERED: ENTECAVIR 0.5 MG TABLET PO SCH (09:00)
[2020-08-25] MEDS: SODIUM CHLORIDE 0.9% 1,000 ML IV SCH (11:23)
[2020-08-25] MEDS ORDERED: AMOX1TAB64 PO (13:19)
[2020-08-25] MEDS ORDERED: CLIN300C9 PO (13:35)
[2020-08-25 13:59] VITALS: BP 99/61
== END 2020-08-25 16:10 | disposition home or self-care (01) | DRG 840 ==
LOC: ED 18:32 → EDIP 18:39 → ED 19:13 → 4NW 19:57 → DCLOUNGE 08-25 15:50
PROVIDERS: ADMIT Internal Medicine; ATTEND Family Medicine
DX: C83.30 Diffuse large B-cell lymphoma, unspecified site (principal); J15.9 Unspecified bacterial pneumonia; B19.10 Unspecified viral hepatitis B without hepatic coma; D84.9 Immunodeficiency, unspecified; E78.5 Hyperlipidemia, unspecified; I45.10 Unspecified right bundle-branch block; Z20.822 Contact with and (suspected) exposure to COVID-19; Z82.49 Family history of ischemic heart disease and other diseases of the circulatory system; Z79.899 Other long term (current) drug therapy
CPT/HCPCS: 36415; 71045; 80053; 80061; 81001; 83036; 83605; 83735; 84439; 84443; 84550; 85025; 87040; 87635; 93005; 99285; G0378; J0692; J1650; J2185; J3370; J7030

== ENCOUNTER 2021-02-08 12:33 | Day surgery (SDC) | payer OTHER ==
[~2021-02-08 12:33] MED LIST changes: -ACYC-113 PO; +ACYC200C13 PO; +ALLO300T PO; +AMOX1TAB64 PO; +CLIN300C9 PO; +ENTE0.5T12 PO; -ENTE0.5T4 PO; +FAMO-79 PO; +ONDA8TAB16 SL; +PROC10TA78 PO; +TRAM50TA2 PO
[2021-02-08] MEDS ORDERED: LIDOCAINE-MPF 1%, 5ML ONE (13:18)
== END 2021-02-08 23:59 | disposition home or self-care (01) ==
LOC: RAD 12:33
PROVIDERS: ATTEND Internal Medicine Hematology & Oncology
DX: C83.30 Diffuse large B-cell lymphoma, unspecified site (principal)
CPT/HCPCS: 10030; 76942; 87070; 87077; 87186; 87205; 88112; 88304; 88305